=== PATIENT | female | born 1990 | race Caucasian/White ===

== ENCOUNTER 2016-06-29 06:43 | Inpatient (IN) | payer OTHER ==
[~2016-06-29] VITALS: Ht 157.5 cm; Wt 84.8 kg
--- NOTE | 2016-06-29 07:23 | PCM.HPOB ---
Subjective Date of Service: Jun 29, 2016 Referring Provider: Admitting Physician: Raymond Wilkins MD Primary Care Physician: Anamaria Iverson MD Attending Physician: Raymond Wilkins MD History of Present History of Present Illness 25-year-old female at 41 weeks 1 day by EDC of 06/21/16 who presents for induction of labor. has been uncomplicated. Patient notes feeling abdominal firmness but no discomfort or pain. She denies leakage of fluid or blood. FHR initial show minimal variability and late decelerations. Patient reposition showed some improvement. No other concerns. labs included blood type A positive, antibody screen negative, Pap smear normal on 12/18, varicella immune, rubella immune, RPR nonreactive, hepatitis B surface antigen negative, HIV nonreactive, normal 1 hour GTT, negative chlamydia and gonorrhea, GBS negative. OB History: (2), Para, Term (0), Pre-term (0), (1), Living (0) Obstetrical Complications: None Past Medical History Obstetrical History: Term intrauterine Gynecologic History: No abnormal pap smears Medical History: None Surgical History: Tympanostomy Tonsillectomy Social History: Lives at home with family. No history of tobacco, alcohol, or illicit drug use. Hx Tobacco Use: No Smoking Status: Never Smoker Hx Alcohol Use: No Hx Substance Use: No Past Family History Family History Maternal grandmother - hypertension No cardiovascular, bleeding or clotting disorders, or cancer in the family. Living Arrangement: with Family Genetic Screening/Counseling Comment: Declined Baby father-had child w defect: No Review of Systems Constitutional: Y: Change of appitite, Chills, Dizziness, Fever, Malaise, Other , Pain, Sweats, Weakness, Weight loss Eyes: Denies: Blurred Vision, Conjunctive Inflammation, Double Vision, Eyelid Inflammation, Other, Pain, Redness, Vision Changes ENT: Denies: Dental Problems, Dysphagia, Ear Discharge, Ear Pain, Hoarseness, Membranes Dry, Nasal Congestion, Nose Discharge, Nose Pain, Other, Throat Pain, Tinnitus, Ulcers/Sores in Mouth Cardiovascular: Denies: Chest Pain, Edema, Orthopnea, Other, Palpitations, SOB while laying flat Respiratory: Denies: Cough, Cough with bloody sputum, Other, Pleuritic Chest Pain, Pleuritic Chest Pain, SOB with Exertion, Sputum, Wheezing Gastrointestinal: Denies: Abdominal Pain, Black tarry stools, Blood in stool ( red), Change in Appetite, Constipation, Diarrhea, Epigastric pain, Heartburn, Nausea, Other, Use of Laxatives, Vomiting Genitourinary: Denies: Anuria, Change in Frequency, Dysuria, Hematuria, Incontinence, Nocturia, Other, Retention Musculoskeletal: Denies: Back Pain, Deformity, Limitation of Function, Neck Pain, Other, Redness, Shoulder Pain, Swelling Skin/Breasts: Denies: Bruising, Discharge, Dry or Flakiness, Jaundice, Lesions , Masses, Mastalgia, Other, Rash, Scars, Ulcers Skin: Denies: Bruising, Dry or Flakiness, Jaundice, Lesions, Other, Rash, Scars , Ulcers Neurological: Denies: Change in Speech, Confusion, Dizziness, Incoordination, Numbness, Other, Seizures, Somnolence, Tremors, Weakness Psychologic: Reports: Anxious Endocrine: Denies: Blood Glucose Review, Change in Appitite, Diaphoresis, Excessive Thirst, Intolerent to Heat/Cold, Other, Recent A1C, Urinating frequently Hematologic: Denies: Abnormal bleeding, Adenopathy, Bruising, Other Medications Home medications vitamins Allergy Coded Allergies: No Known Allergies (Unverified , 06/29/16) Exam Vital Signs WNL Exam Category II tracing. Baseline FHR 150. Few late decelerations improved with repositioning. Cervical exam was finger tip and soft. Deutsch score of 4. Constitutional: Well-developed, Well-nourished HEENT: Atraumatic, PERRLA, EOMI Lungs: Clear to Auscultation Heart: Regular Rate/Rhythm, Normal S1, Normal S2, No Murmurs/Rubs/Gallops Abdomen: Gravid, Normal bowel sounds Lymphatic: Normal: Neck Palpation of Nodes Extremities: Pulses Palpable x4 Neurological/Psychiatric: Alert, Oriented X3, Cooperative, No Acute Distress Neuro: Grossly Neurologically Intact, Normal Tone, Normal Speech, Normal Gait, Sensation Intact Labs/Diagnostics Lab/Diagnostic Information CBC Test 06/29/16 08:25 White Blood Count 9.9th/mm3 (3.8-10.1) Red Blood Count 4.39mil/mm3 (3.90-5.20) Hemoglobin 12.9g/dL (12.0-15.6) Hematocrit 39.4% (35.0-46.0) Mean Corpuscular Volume 89.7fL (81-100) Mean Corpuscular Hemoglobin 29.4pg (27.0-35.0) Mean Corpuscular Hemoglobin Concent 32.7% (32.0-37.0) Red Cell Distribution Width 13.9% (12.3-15.4) Platelet Count 300bil/L (150-400) Maternal Blood Type: A Hx Rho(D) Immune Globulin: No Antibody Screen: negative Group B Strep Results: Negative Previous Infant with GBS: No Rubella: Immune OB Intrapartum Assessment/Plan Assessment 1. Term intrauterine 2. Category II heart tones Pain Evaluation: Adequate Pain Control Intrapartum plan 1. IV fluids with D5LR and continue to monitor for improvement in heart tones. 2. If heart tones improved will proceed with cervical ripening and induction. 3. Expect normal spontaneous vaginal delivery. Attending Statement The patient was seen and examined and I agree with the history, exam and plan as outlined in the note above. JUANITO ANDERSON DO Jun 29, 2016 07:22 Mary Jane Ha MD Jul 01, 2016 20:36
[2016-06-29] MEDS ORDERED: Hemorrhage Kit, Post Partum XX ONE (07:55)
[2016-06-29] MEDS ORDERED: Oxytocin 30 Units/500 mL LR 30 UNITS in IV Premix 1 EACH IV PRN (07:55)
[2016-06-29] MEDS ORDERED: Methylergonovine 0.2 mg/mL Inj IM PRN (07:55)
[2016-06-29] MEDS ORDERED: Carboprost 250 mCg/mL Inj IM PRN (07:55)
[2016-06-29] MEDS ORDERED: Oxytocin 10 Unit/mL Inj IM PRN (07:55)
[2016-06-29] MEDS ORDERED: Lactated Ringer's 1,000 ML IV PRN (07:55)
[2016-06-29] MEDS ORDERED: Sodium Chloride LOK Flush 10 mL Syringe IVFLUSH PRN (07:55)
[2016-06-29 08:37] LABS: Mean Corpuscular Hemoglobin 29.4 pg (27.0-35.0); Mean Corpuscular Volume 89.7 fL (81-100)
[2016-06-29] MEDS: Dextrose 5% Lactated Ringer's 1,000 ML IV SCH (08:40)
[2016-06-29] MEDS ORDERED: PNV1TABL81 PO (09:17)
--- NOTE | 2016-06-29 10:54 | PCM.PNOBIP ---
Subjective Date of Service Jun 29, 2016 Subjective Doing well, had some questionable heart tones at the start of induction, improved with IVF hydration. Group B Strep Results: Negative Rubella: Immune Blood Type: A Labs Laboratory Tests 06/29/16 08:25: White Blood Count 9.9, Red Blood Count 4.39, Hemoglobin 12.9, Hematocrit 39.4, Mean Corpuscular Volume 89.7, Mean Corpuscular Hemoglobin 29.4, Mean Corpuscular Hemoglobin Concent 32.7, Red Cell Distribution Width 13.9, Platelet Count 300 Exam Vital Signs Vital Signs Contraction frequency in minutes: MVUs: Heart Tracings Heart Tones Baseline 140/moderate/15x15 occasional mild variable decelerations bpm Tocometry/IUPC Contraction frequency in minutes: MVUs: Sterile Vaginal Exam Cervical Dilation: 1 cm Cervical Effacement: 50 % Station: -3 Exam General: Alert, Oriented X3, Cooperative, No Acute Distress Additional Information R[place]an balloon inserted cervically and inflated to 50cc saline. OB Intrapartum Assessment/Plan Assessment Problems: (1) Plan: Doing well. Cervical ripening balloon inserted. Will start pitocin at 2 mu and hold until balloon falls out as long as tolerance to this. Continue to monitor heart tones. Improved significantly since admission. Status: Acute ICD Code: Z33.1 Intrapartum plan: Continue expected management Mary Jane Ha MD Jun 29, 2016 10:54
[2016-06-29] MEDS: Lactated Ringer's 1,000 ML IV SCH (11:24)
[2016-06-29] MEDS: Oxytocin 30 Units/500 mL LR 30 UNITS in IV Premix 1 EACH IV PRN (12:22)
[2016-06-29] MEDS ORDERED: Oxytocin 30 Units/500 mL LR Premix IV PRN (21:40)
[2016-06-29] MEDS ORDERED: Misoprostol 25 mCg/0.25 Tablet VAGINAL PRN (21:40)
[2016-06-30] MEDS: Dextrose 5% Lactated Ringer's 1,000 ML IV SCH ×2 (09:05→14:05)
--- NOTE | 2016-06-30 09:06 | PCM.PNOBIP ---
Subjective Date of Service Jun 30, 2016 Delivery plan: Spontaneous Vaginal Delivery Visit History 25-year-old female at 41 weeks 1 day by EDC of 06/21/16 who presented on 06/29 for induction of labor. has been uncomplicated. This morning patient cervical exam reveals dilation of 4, 70% effacement, and -3 station. Deutsch score of 8. We will start patient on Pitocin at this time. Patient may desire an epidural depending on progression of pain. FHR continues to have minimal variability but improved since yesterday. We will continue to monitor closely. No other concerns. Pain Management: No or Minimal Pain Gastrointestinal: No N/V Activity: Other (standing with monitor in place) Group B Strep Results: Negative Rubella: Immune Blood Type: A RH Type: Positive Labs Laboratory Tests 06/29/16 08:25: White Blood Count 9.9, Red Blood Count 4.39, Hemoglobin 12.9, Hematocrit 39.4, Mean Corpuscular Volume 89.7, Mean Corpuscular Hemoglobin 29.4, Mean Corpuscular Hemoglobin Concent 32.7, Red Cell Distribution Width 13.9, Platelet Count 300 Exam Vital Signs Vital Signs Contraction frequency in minutes: MVUs: Vital Signs: VS reviewed, stable (BP 114/70 pulse 92 temp 36.7) Heart Tracings Heart Tones Baseline 140 bpm Heart Rate Variability: Minimal Heart Rate Accelleration: Present Heart Rate Deceleration: Present Heart Rate Category: II Tocometry/IUPC Contraction frequency in minutes: MVUs: Sterile Vaginal Exam Cervical Dilation: 4 cms Cervical Effacement: 70 % Station: -3 Exam Extremities: No cords, Normal pulses, Other (trace lower extremity edema) Lungs: Clear to Auscultation, Normal Air Movement Heart: Regular Rate/Rhythm, Normal S1, Normal S2, No Murmurs/Rubs/Gallops General: Alert, Oriented X3, Cooperative, No Acute Distress OB Intrapartum Assessment/Plan Assessment Problems: (1) Qualifiers: Weeks of gestation: 41 weeks Qualified Code: O48.0 - Post-term Status: Acute ICD Code: Z33.1 Intrapartum plan: Continue expected management, Start pitocin Intrapartum Pain Management: May have epidural when desired Pain Evaluation: Adequate Pain Control Post plan: Continue routine post care Attending Statement Agree with above H&P. Will start pitocin for IOL. JUANITO ANDERSON DO Jun 30, 2016 09:06 Lavern Graff MD Aug 01, 2016 11:06
[2016-06-30] MEDS: Lactated Ringer's 1,000 ML IV SCH ×4 (09:59→18:19)
[2016-06-30] MEDS: Oxytocin 30 Units/500 mL LR 30 UNITS in IV Premix 1 EACH IV PRN (10:25)
[2016-06-30] MEDS ORDERED: Lactated Ringer's 1,000 ML IV SCH (11:49)
[2016-06-30] MEDS ORDERED: Lactated Ringer's 500 ML IV ONE (11:49)
[2016-06-30] MEDS ORDERED: fentaNYL 2 mCg/mL-Bupiv 0.125% 100 ML EPIDURAL SCH (11:50)
[2016-06-30] MEDS ORDERED: Ondansetron 2 mg/mL 2 mL Inj IVPUSH PRN ×2 (11:50→16:35)
[2016-06-30] MEDS ORDERED: EPHEDrine Sulfate 50 mg/mL Inj IVPUSH PRN ×2 (11:50→16:35)
[2016-06-30] MEDS ORDERED: Atropine 1 mg/10 mL (Code) Syringe IVPUSH PRN (11:50)
--- NOTE | 2016-06-30 13:13 | PCM.HPANE ---
Patient Data Date of Service: Jun 30, 2016 Surgeon Admitting Provider:Raymond Wilkins MD Attending Provider:Raymond Wilkins MD Primary Care Physician:Anamaria Iverson MD Other Provider:Tonja Ospina Anesthesia Reason for Visit Induction INDUCTION Ht/WT & BMI Height (Centimeters): 157 Weight (Kilograms): 84.8 Body Mass Index 34.2 Allergies Coded Allergies: No Known Allergies (Unverified , 06/29/16) Diabetes History Hx Diabetes?: No MRSA MRSA: No Medications Hypertension Medication: No Home Meds Incl Beta Ambar: No Reported Medications Pnv No.122/Iron/Folic Acid ( Multi Tablet)27 Mg Iron-800 Mcg Tablet1 Each PO DAILY 06/29/16 History History of ENT Problems?: No Hx of Heart Problems?: No Hx of Respiratory Problem?: No Hx Neurologic Problems?: No Hx of GI Problems?: No HX of Peritoneal Dialysis: No Female Hx: Positive for:: Currently (induction) Hx Musculoskeletal Problems?: No Hx of Psycho/Social Problems?: No Hx Surgeries?: No Hx Any Other Health Problems?: No Hx Diabetes: No Hx Alcohol Use: NoHx Substance Use: No Smoking Status: Never Smoker Stop/Bang Treated for Sleep Apnea?: No Do You Have a CPAP Machine?: No KEYONNA Risk Assessment: Low Risk, <3 Yes Risk Assessment Category Category 1A: Patient has history of documented sleep apnea, and HAS NOT received any narcotic, sedative or anesthesia administration during this stay. Category 1B: Patient has history of documented sleep apnea, and HAS received any narcotic , sedative or anesthesia administration during this stay Category 2: Patient has SUSPECTED Obstructive Sleep Apnea, and HAS received any narcotic , sedative or anesthesia administration during this stay. Category 3: Patient has SUSPECTED Obstructive Sleep Apnea and HAS NOT received narcotic, sedative or anesthesia administration during this stay. Category 4: Outpatient in Procedural Areas with known sleep apnea or who screen positive for High Risk via the STOP/BANG questionnaire. Exam Exam Vital Signs See OB record, vitals reviewed on anesthetic record General Appearance: Alert, Oriented X3, Cooperative HEENT/AIRWAY: MP 1, Neck Movement (Full), Mouth Opening (Wide) Lungs: Clear to Auscultation, Normal Air Movement Heart: Regular Rate/Rhythm, Normal S1, Normal S2 Meds/Labs/Diagnostics Labs Test 3/28/17 08:25 White Blood Count 9.9th/mm3 (3.8-10.1) Red Blood Count 4.39mil/mm3 (3.90-5.20) Hemoglobin 12.9g/dL (12.0-15.6) Hematocrit 39.4% (35.0-46.0) Mean Corpuscular Volume 89.7fL (81-100) Mean Corpuscular Hemoglobin 29.4pg (27.0-35.0) Mean Corpuscular Hemoglobin Concent 32.7% (32.0-37.0) Red Cell Distribution Width 13.9% (12.3-15.4) Platelet Count 300bil/L (150-400) Plan Impression Patient chart reviewed, patient interviewed and anesthestic plan with risks, benefits, and alternatives discussed, and informed consent obtained. NPO Status: Full ASA Physical Status: ASA2 Mod Systemic Disease (obesity) Anesthetic Plan: Epidural Bene/Risks/Altern/Consents: Yes HP Complete Prior to Induction: Yes Chris Mack MD Jun 30, 2016 11:50
[2016-06-30] MEDS ORDERED: CeFAZolin Inj 2 GM in IV Premix 1 EACH IV ONE (16:00)
[2016-06-30] MEDS ORDERED: Phenylephrine/NS-PF 100 mCg/mL 5 mL Syringe IVPUSH ONE (16:00)
[2016-06-30] MEDS ORDERED: Morphine PF 1 mg/mL 10 mL Inj ONE (16:00)
[2016-06-30] MEDS ORDERED: Sodium Citrate-Citric Acid 15 mL Solution PO SCH (16:00)
[2016-06-30] MEDS ORDERED: Oxytocin 10 Unit/mL Inj ONE (16:00)
[2016-06-30] MEDS ORDERED: Bupivacaine-MPF 0.5% 30 mL Inj ONE (16:00)
[2016-06-30] MEDS ORDERED: Lidocaine 2%-Epi 1:100,000 20 mL Inj ONE (16:00)
[2016-06-30] MEDS ORDERED: Ondansetron 2 mg/mL 2 mL Inj ONE (16:00)
[2016-06-30] MEDS ORDERED: fentaNYL-PF 50 mCg/mL 2 mL Inj IVPUSH PRN (16:35)
[2016-06-30] MEDS ORDERED: MetoCLOpramide 5 mg/mL 2 mL Inj IVPUSH PRN (16:35)
[2016-06-30] MEDS ORDERED: Dexamethasone 4 mg/mL Inj IVPUSH PRN (16:35)
[2016-06-30] MEDS ORDERED: Atropine 0.4 mg/mL Inj IV PRN (16:35)
--- NOTE | 2016-06-30 16:46 | PROG NOTE ---
[address] [address] PROGRESS NOTE PATIENT: TRUDY BRITT : 1990 MR#: [id number] ADMIT: 06/29/2016 JOB ID: [id number] DATE: 06/30/2016 SUBJECTIVE: This is a 25-year-old female. She is para 0. She came in yesterday for scheduled induction of labor. She got cervical ripening balloon overnight and her cervix went to 4 cm dilation and Pitocin started this morning, and from this morning from overnight her tracing has been category 2 with normal baseline moderate variability, intermittent variable decels and early decels. This morning planning to start her on Pitocin for induction and before we planning for induction, at that time she had a category 2 tracing with intermittent observation of variable deceleration. The plan was to given her intrauterine resuscitation. When her tracing was improving, we will start her Pitocin induction. The induction was started around 10 o'clock, with a low dose of 2 units of Pitocin. Her tracing was not reassuring and the Pitocin has to stop. The tracing was baseline at 1:40, mostly had moderate variability. She had variable decels, and likely early decels, but with some component of late deceleration at the recovery. Then the patient also has pain from labor and she got epidural and I ruptured membrane at around 1 o'clock this afternoon. There was a small amount of fluid noticed with slightly meconium stained, but I do see a clear component of the fluid. Part of it also was blood tinged. IUPC and FSE placed. With IUPC I could not clearly see fluid getting to the tube. With the internal monitor, the patient would have contraction about every 3-5 minutes without Pitocin. Her tracing is still intermittent category 2 tracing. With very low dosage of Pitocin, wanted to urinate. She had degenerating category 2 tracing. With resuscitation, it can improve for short period of time and goes back to minimal variability with variable decelerations, late decels component too and I examined her cervix at 3:20. Her cervix was still 4 cm dilated, 80% effaced, the head at -3 station. It was not different compared to in the morning. I discussed the patient infant situation that she is in early labor. There is no progressing at this moment and with head station -3 and deteriorating category 2 tracing, I recommend we have a . The patient understood this very well and agreed for the procedure. I discussed with her about the indication, benefits, risks of the procedure. Informed consent signed.
[2016-06-30] MEDS ORDERED: Sodium Chloride LOK Flush 10 mL Syringe IVFLUSH PRN (18:00)
[2016-06-30] MEDS ORDERED: Oxytocin 10 Unit/mL Inj IM PRN (18:00)
[2016-06-30] MEDS ORDERED: Carboprost 250 mCg/mL Inj IM PRN (18:00)
[2016-06-30] MEDS ORDERED: Oxytocin 30 Units/500 mL LR 30 UNITS in IV Premix 1 EACH IV PRN (18:00)
[2016-06-30] MEDS ORDERED: LANOlin HPA 7 Gm Ointment TOPICAL PRN (18:00)
[2016-06-30] MEDS ORDERED: Methylergonovine 0.2 mg/mL Inj IM PRN (18:00)
[2016-06-30] MEDS ORDERED: HYDROcodone-APAP 5-325 mg Tablet PO PRN (18:00)
[2016-06-30] MEDS ORDERED: Hemorrhage Kit, Post Partum XX ONE (18:00)
[2016-06-30] MEDS ORDERED: CeFAZolin Inj 2,000 MG in Dextrose 5% 50 ML IV ONE (18:15)
--- NOTE | 2016-06-30 19:03 | PCM.ANEP1 ---
Post Anesthesia Phase 1 PACU Phase 1 Assessment Date of Service: Jun 30, 2016 Vital Signs See Anesthesia Record or OB vitals documentation Level of Alertness: Awake, talking ALCANTAR's with Equal Strength: No Pain: No Nausea or Vomiting: No Oxygen Delivery: Room Air Lungs: Normal Air Movement Dermatome Level: T6 (Xyphoid Process) Chris Mack MD Jun 30, 2016 19:03
[2016-06-30] MEDS ORDERED: Phenylephrine/NS-PF 100 mCg/mL 5 mL Syringe IVPUSH PRN (19:05)
--- NOTE | 2016-06-30 20:13 | OP ---
[address] [address] OPERATIVE REPORT PATIENT: TRUDY BRITT : 1990 MR#: [id number] ADMIT: 06/29/2016 JOB ID: [id number] DATE OF SURGERY: 06/30/2016 SURGEON: Lavern Graff M.D. BILLBOARD INSTALLER: Ricky Huffman MD The virtual customer assistant is necessary for this procedure for a better exposure and for smoothly completing the procedure. PREOPERATIVE DIAGNOSIS(ES): category 2 tracing, remote from delivery POSTOPERATIVE DIAGNOSIS(ES): category 2 tracing, remote from delivery PROCEDURE IN DETAIL: This is a 25-year-old female. She is 1, para 1 now. She presents to [facility] for induction of labor and decision was made for primary section for deteriorating category 2 tracing and no progress of labor. Patient understood the risk of infection, bleeding, injury to the organs around the uterus, including but not limited to, the bladder, ureters, major vessels, nerves, and bowels. Informed consent signed. Patient understood there is risk of blood transfusion. She was transferred to operating room. After epidural anesthesia was noted to be adequate, she was placed in dorsal supine position with a leftward tilt. She was prepared and draped in normal sterile fashion. A Pfannenstiel incision was placed with scalpel and this incision was carried down to the underlying fascia with Bovie. A transverse incision was placed on fascia with scalpel and this incision was extended bilaterally by Combs scissors. The superior aspect of the incision was grasped by straight Ping tented up. The underlying rectus muscle dissected off. The inferior off this incision was grasped by Kochers and tented up. The underlying rectus muscle dissected off. The rectus muscle was in the midline and the underlying peritoneum identified and entered bluntly. At this time, the peritoneum was extended both bluntly and sharply. Lower blade inserted to expose the lower segment of the uterus. The uterine vesicle peritoneum identified and entered sharply with [place] scissors. Bladder flap created digitally. The lower blade reinserted to expose the lower segment of the uterus. A transverse incision was placed on the lower segment of the uterus and this incision was extended bilaterally bluntly. At this time, all instruments removed from the field. The membrane ruptured spontaneously and the membranes ruptured with IVUS and then the was delivered at direct OP position without difficulty. The shoulder and chest delivered without difficulty. The infant was dried and covered with warm blankets. The cord clamped 1 minute after delivery. The cried spontaneously and handed to the awaiting customer support assistant. Regular cord blood collected. Then, placenta delivered spontaneously completely, and examined with three-vessel cord. At this time, the uterus was exteriorized and all debris, clots cleared from the field. The incision was closed by 0-Vicryl continuously with a locked fashion. The second layer was placed with the same suture for imbrication. A couple of fgknvw-vw-kyada stitches had to be placed for hemostasis. By this time, the bilateral ovaries and tubes were examined and were found all to be normal. The pelvis was irrigated with warm normal saline and then the uterus was returned back to the abdominal cavity. At this time, the incision was re-examined and noticed a small oozing from the needle hole where the rmuakq-vo-ykcve stitches was placed. Then, 3-0 Monocryl on an SH needle was used to place other iubcho-kq-bbxmi stitches and hemostasis confirmed at this time. Then the fascia was reapproximated with 0-Vicryl continuously. The subcutaneous tissue was reapproximated with 3-0 chromics tissue chromic suture continuously the skin was closed with 4-0 Monocryl on a Eugenio needle. The patient tolerated the procedure well. All instrument, needles, laps and gauzes counted correct twice. The score of the infant was 8 and 9. The weight was not available at dictation. The EBL of the procedure was 500 cc. MTDD
[2016-06-30] MEDS: Acetaminophen IV 1,000 MG in IV Premix 1 EACH IV PRN (20:40)
[2016-07-01] MEDS: Acetaminophen IV 1,000 MG in IV Premix 1 EACH IV PRN (02:33)
--- NOTE | 2016-07-01 04:51 | PCM.ANEP2 ---
Post Anesthesia Evaluation ASA/CMS Post Anesthesia Date of Service: Jul 01, 2016 VS in Patient's Normal Range?: Yes Resp Stable; Airway Patent?: Yes CV Function & Hydration Stable: Yes Mental Status Recovered?: Yes Pain control Satisfactory?: Yes N/V Control Satisfactory?: Yes Chris Mack MD Jul 01, 2016 04:51
--- NOTE | 2016-07-01 06:40 | PCM.PNOBPP ---
Subjective Date of Service Jul 01, 2016 Post : Primary Cesere[place] Delivery Subjective 25-year-old female post op day 1 after primary section after declining category 2 tracing. otherwise was uncomplicated. Mother and baby doing well. Pain controlled with IV Tylenol and Toradol overnight. Lochia: Normal Pain Management: IV Push Gastrointestinal: No N/V Postop Activity: Ambulating in Room Only Group B Strep Results: Negative Rubella: Immune Blood Type: A RH Type: Positive Labs Laboratory Tests 06/29/16 08:25: White Blood Count 9.9, Red Blood Count 4.39, Hemoglobin 12.9, Hematocrit 39.4, Mean Corpuscular Volume 89.7, Mean Corpuscular Hemoglobin 29.4, Mean Corpuscular Hemoglobin Concent 32.7, Red Cell Distribution Width 13.9, Platelet Count 300 Exam Vital Signs Vital Signs: VS reviewed, stable Exam Abdomen: Fundus firm, Abdomen appropriately tender : [place] catheter (removed this AM) Extremities: Edema 1+ Lungs: Clear to Auscultation, Normal Air Movement Heart: Regular Rate/Rhythm, Normal S1 General: Alert, Oriented X3, Cooperative OB Post Assessment/Plan Assessment 1. Term intrauterine post op day 1 after primary section Pain Management: Plan to switch from IV to oral pain control. Pain Evaluation: Adequate Pain Control Post plan: Continue routine post care, Discharge home tomorrow Plan: 1. Encourage ambulation and oral intake as tolerated. 2. Kearns removed this AM. 3. Pain control with oral medications including Percocet and Ibuprofen. 4. Continue routine care. Attending Statement The patient was seen and examined and I agree with the history, exam and plan as outlined in the note above. She is doing well. Her kearns was removed this AM and she has not yet voided. Lochia is minimal. She is tolerating a regular diet. Pain is well controlled. CBC is stable this AM. Continue to encourage , plan for discharge home tomorrow if meeting all goals. JUANITO ANDERSON DO Jul 01, 2016 06:40 Mary Jane Ha MD Jul 02, 2016 09:11 Mary Jane Ha MD Jul 02, 2016 09:11
[2016-07-01 06:59] LABS: Mean Corpuscular Hemoglobin 29.2 pg (27.0-35.0); Mean Corpuscular Volume 90.8 fL (81-100)
[2016-07-01] MEDS: Sodium Chloride LOK Flush 10 mL Syringe IVFLUSH SCH ×2 (08:30→16:30)
[2016-07-01] MEDS: Dextrose 5% Lactated Ringer's 1,000 ML IV SCH ×3 (09:46→20:05)
[2016-07-01] MEDS: Lactated Ringer's 1,000 ML IV SCH ×2 (09:47→17:59)
[2016-07-01] MEDS: oxyCODONE-Acetamin 5-325 mg Tablet PO PRN ×4 (10:05→23:41)
[2016-07-02] MEDS: Sodium Chloride LOK Flush 10 mL Syringe IVFLUSH SCH (00:30)
[2016-07-02] MEDS: Dextrose 5% Lactated Ringer's 1,000 ML IV SCH (01:05)
[2016-07-02] MEDS: Lactated Ringer's 1,000 ML IV SCH (01:59)
[2016-07-02] MEDS: oxyCODONE-Acetamin 5-325 mg Tablet PO PRN ×4 (04:00→16:08)
--- NOTE | 2016-07-02 06:56 | PCM.DIOB ---
JUANITO ANDERSON DO 07/02/16 0656: Obstetrical Disch Instruction Date of Service: Jul 02, 2016 Dates of Hospitalization Date of Hospital Admission Jun 29, 2016 at 06:43 Providers Admitting Physician: Raymond Wilkins MD Primary Care Physician: Anamaria Iverson MD Attending Physician: Raymond Wilkins MD Discharge Diagnosis Discharge Diagnosis 1. Term intrauterine post op day 2 after primary section Problems: Diet Discharge Diet: No restrictions Activity Discharge Activity-General: Pelvic Rest for 6 weeks, Try not to overdue, Be up and about, Balance rest and activity, Activity as pain allows, Activity as energy allows, No lifting >10 pounds for 4-6 weeks Dressing and Incisional Care Dressing Care: Allow Steri Stripes to fall off Hygiene: May shower, DO NOT soak incision under water, NO bathtub, hot tub or whirlpool Additional Instructions Discharge Instructions Continue your vitamin. Please take the iron and vitamin c together for your anemia. Do not take more pain medication (Percocet) than is necessary -- less is better. Percocet pills have Tylenol (acetaminophen) in them at 325mg per pill. Do not take Tylenol in addition to your pain medication but should take one or the other. Both iron and Percocet can give you constipation so you have also been given a prescription for docusate to keep you regular. Be sure to follow up in 2 weeks and then again in 6 weeks at [facility]. Pelvic rest for 6 weeks (nothing per vagina including intercourse, tampons) If you have a fever greater than 100.4, please call [facility]. There is always someone television picture tube rebuilder to talk to. If you have an increase in bleeding, call [facility]. If you have a lot of bleeding suddenly, especially if you have symptoms of dizziness & weakness with it, get emergency help. If you start experiencing extreme depression, especially if you feel that you are a danger to yourself or your family, seek emergency help. You have been through a lot -- BE SURE TO TAKE CARE OF YOURSELF. You have been sent home with the following prescriptions: - Percocet 5/325 mg, take 1 tab every 4-6 hours as needed for pain. - Colace 100 mg twice a day as needed for constipation. - Ferrous sulfate 325 mg every day. - Vitamin C 500 mg every day. Take with iron. - Ibuprofen 800mg take 1 tab every 8 hours as needed for pain. Follow Up Plan Follow Up Plan Follow-up in 2 and 6 weeks with [facility]. Follow-up Provider (F9): Lavern Graff MD Follow-up appointment: Weeks (2 and 6) Call your provider for: Fever or Chills, Shortness of breath, Heavy vaginal bleeding, Heavy bleeding, Epigastric pain, Excessive constipation, Vaginal discomfort, Red painful breasts Lavern Graff MD 08/01/16 1119: Obstetrical Disch Instruction Attending Statement I saw patient and examined her. I agree with above plan. JUANITO ANDERSON DO Jul 02, 2016 06:56 Lavern Graff MD Aug 01, 2016 11:19
[2016-07-02] MEDS ORDERED: OXYC1TAB24 PO (07:01)
[2016-07-02] MEDS ORDERED: IBUP800T28 PO (07:01)
[2016-07-02] MEDS ORDERED: ASCO-294 PO (07:01)
[2016-07-02] MEDS ORDERED: FERR-74 PO (07:01)
[2016-07-02] MEDS ORDERED: DOCU-41 PO (07:01)
--- NOTE | 2016-07-02 07:44 | PCM.DC.OB ---
Obstetrical Discharge Summary Date of Service Jul 02, 2016 Date of hospital admission Jun 29, 2016 at 06:43 Date of Discharge: Jul 02, 2016 Providers Admitting Physician: Raymond Wilkins MD Primary Care Physician: Anamaria Iverson MD Attending Physician: Raymond Wilkins MD Diagnosis at Time of Discharge Term intrauterine post op day 2 after primary section Problems: Date of Procedure: Jun 30, 2016 Brief History and Physical: Per Dr. Anderson's H&P: 25-year-old female at 41 weeks 1 day by EDC of 06/21/16 who presents for induction of labor. has been uncomplicated. Patient notes feeling abdominal firmness but no discomfort or pain. She denies leakage of fluid or blood. FHR initial show minimal variability and late decelerations. Patient reposition showed some improvement. No other concerns. labs included blood type A positive, antibody screen negative, Pap smear normal on 12/18, varicella immune, rubella immune, RPR nonreactive, hepatitis B surface antigen negative, HIV nonreactive, normal 1 hour GTT, negative chlamydia and gonorrhea, GBS negative. Hospital Course: This is a 25-year-old female. She is para 0. She came in for scheduled induction of labor. Cervical ripening balloon was placed and pitocin started. She failed to make appropriate progress and developed a deteriorating category 2 tracing. Patient was subsequently taken for . Patient has done well post-operatively and has met all goals. Ascorbate Calcium (Vitamin C) 500 Mg Tablet 500 MG PO DAILY Prescribed by: JUANITO ANDERSON DO Docusate Sodium (Colace) 100 Mg Capsule 100 MG PO BID PRN PRN For Constipation Prescribed by: JUANITO ANDERSON DO Ferrous Sulfate (Feosol) 325 Mg Tablet 325 MG PO DAILY Prescribed by: JUANITO ANDERSON DO Ibuprofen (Ibuprofen) 800 Mg Tablet 800 MG PO TID PRN PRN For Pain Prescribed by: JUANITO ANDERSON DO Pnv No.122/Iron/Folic Acid ( Multi Tablet) 27 Mg Iron-800 Mcg Tablet 1 EACH PO DAILY (Reported) oxyCODONE-Acetaminophen 5-325 mg (oxyCODONE-Acetaminophen 5-325 mg) 1 Each Tablet 1 TAB PO Q4-6H PRN PRN For Pain Prescribed by: JUANITO A MONICA, DO Discharge Medications: - Percocet 5/325 mg, take 1 tab every 4-6 hours as needed for pain. - Colace 100 mg twice a day as needed for constipation. - Ferrous sulfate 325 mg every day. - Vitamin C 500 mg every day. Take with iron. - Ibuprofen 800mg take 1 tab every 8 hours as needed for pain. Follow-up plan Follow-up in 2 and 6 weeks with [facility]. Discharge Diet: No restrictions Discharge Activity-General: Pelvic Rest for 6 weeks, Try not to overdue, Be up and about, Balance rest and activity, Activity as pain allows, Activity as energy allows, Other (No lifting >10 pounds for 4-6 weeks) Patient instructions Continue your vitamin. Please take the iron and vitamin c together for your anemia. Do not take more pain medication (Percocet) than is necessary -- less is better. Percocet pills have Tylenol (acetaminophen) in them at 325mg per pill. Do not take Tylenol in addition to your pain medication but should take one or the other. Both iron and Percocet can give you constipation so you have also been given a prescription for docusate to keep you regular. Be sure to follow up in 2 weeks and then again in 6 weeks at [facility]. Pelvic rest for 6 weeks (nothing per vagina including intercourse, tampons) If you have a fever greater than 100.4, please call [facility]. There is always someone carbon cutter to talk to. If you have an increase in bleeding, call [facility]. If you have a lot of bleeding suddenly, especially if you have symptoms of dizziness & weakness with it, get emergency help. If you start experiencing extreme depression, especially if you feel that you are a danger to yourself or your family, seek emergency help. You have been through a lot -- BE SURE TO TAKE CARE OF YOURSELF. You have been sent home with the following prescriptions: - Percocet 5/325 mg, take 1 tab every 4-6 hours as needed for pain. - Colace 100 mg twice a day as needed for constipation. - Ferrous sulfate 325 mg every day. - Vitamin C 500 mg every day. Take with iron. - Ibuprofen 800mg take 1 tab every 8 hours as needed for pain. Attending Statement: I saw patient and examined her. I agree with above plan. JUANITO ANDERSON DO Jul 02, 2016 07:31 Lavern Graff MD Aug 01, 2016 11:21
== END 2016-07-02 16:17 | disposition home or self-care (01) | DRG 766 ==
LOC: FBC 06:43
PROVIDERS: ADMIT Legal Medicine; ATTEND Obstetrics & Gynecology
PROC: 3E0P7GC Introduction of Other Therapeutic Substance into Female Reproductive, Via Natural or Artificial Opening (ICD-10-PCS; 2016-06-29)
PROC: 10H07YZ Insertion of Other Device into Products of Conception, Via Natural or Artificial Opening (ICD-10-PCS; 2016-06-30)
PROC: 10D00Z1 Extraction of Products of Conception, Low, Open Approach (ICD-10-PCS; principal; 2016-06-30 16:33)
DX: O76 Abnormality in fetal heart rate and rhythm complicating labor and delivery (principal); O48.0 Post-term pregnancy; Z3A.41 41 weeks gestation of pregnancy; Z37.0 Single live birth